=== PATIENT | male | born 1975 | race Hispanic/Latino ===

== ENCOUNTER 2019-04-25 12:27 | Emergency (ER) | payer OTHER ==
[~2019-04-25] VITALS: Ht 177.8 cm; Wt 99.8 kg
[2019-04-25] MEDS ORDERED: KETOROLAC TROMETHAMINE 30 MG/ML VIAL IV STA (12:57)
[2019-04-25] MEDS ORDERED: ONDANSETRON HCL INJ 2MG/ML 2ML 2 MG/ML VIAL IV STA (12:57)
[2019-04-25] MEDS ORDERED: MORPHINE SULFATE 2 MG/ML SYR 1ML IV STA (12:57)
[2019-04-25] MEDS ORDERED: TETANUS/DIPHTHERIA TOX ADULT 0.5 ML SYR IM ONE (13:00)
[2019-04-25] MEDS ORDERED: MORPHINE SULFATE INJ 4 MG/ML INJ 1ML ONE (13:04)
--- NOTE | 2019-04-25 13:57 | Diagnostic Imaging Report ---
WRIST 3VW LT - HOPD - 3 views HISTORY: Pain COMPARISON: None available. FINDINGS: See impression. IMPRESSION: Mild ventrally angulated mildly displaced intra-articular distal radial fracture with associated soft tissue swelling. Signed by: Dr. Dewey Denise MD on 04/25/2019 1:53 PM
[2019-04-25] MEDS ORDERED: TETANUS/DIPHTHERIA TOX ADULT 0.5 ML SYR ONE (14:04)
[2019-04-25] MEDS ORDERED: BACITRACIN ZINC 0.9GM TP ONE ×2 (14:29→14:30)
== END 2019-04-25 14:20 | disposition home or self-care (01) ==
LOC: FSED 12:27
DX: S01.81XA Laceration without foreign body of other part of head, initial encounter (principal); S01.511A Laceration without foreign body of lip, initial encounter; S52.352A Displaced comminuted fracture of shaft of radius, left arm, initial encounter for closed fracture; V19.9XXA Pedal cyclist (driver) (passenger) injured in unspecified traffic accident, initial encounter; Y93.55 Activity, bike riding; Y92.89 Other specified places as the place of occurrence of the external cause
CPT/HCPCS: 12011; 29125; 62270; 73110; 90471; 90714; 99284; J1885; J2270 ×2; J2405